=== PATIENT | female | born 1990 | race American Indian/Alaskan Native ===

== ENCOUNTER 2017-09-28 21:13 | Emergency (ER) | payer MEDICAID ==
[2017-09-28 21:29] VITALS: BMI 21.6
[2017-09-28 21:32] VITALS: BP 136/55; PULSE 77; RESP 18; TEMP 99.3; O2SAT 100
--- NOTE | 2017-09-28 21:59 | ED PDOC ---
Arrival/HPI - General Historian: Patient - History of Present Illness Time/Duration: Prior to Arrival Symptom Onset: Other Symptom Course: Other Activities at Onset: Other Context: Other <Raffaele Hooper - Last Filed: 09/28/17 23:43> <Marques Gold - Last Filed: 09/28/17 23:56> - General Chief Complaint: Female Genitourinary Time Seen by Provider: 09/28/17 21:26 - History of Present Illness Narrative History of Present Illness (Text): Patient is a 26 year old female with PMHx of Asthma who presented to the ED with concerns of her . Patient stated she discovered she was due to a positive urine test on 09/25/17. Patient made appointment with [facility] for October 28 2017. The patient was told she would need pre- vitamins earlier than her appointment date so she went for an evaluation at [facility] where they did a transvaginal ultrasound that showed no intrauterine . Currently she has no physical complaints. Patient would like a confirmation of whether she is or not. FDLMP was 08/09/2017. ROS POSITIVES: Hx of Nausea (Currently not nauseous), low appetite NEGATIVES: Fever, chills, headache, chest pain, sob, abdominal tenderness, changes in bowel habits, urinary symptoms, vaginal bleeding. PMHx: Asthma PSHx: None Allergies: Pineapples Social Hx: 1-2 cigarettes daily for about 3 years, Drinks Alcohol occasionally, Daily marijuana use. Fam Hx: Denies Meds: Ventolin 09/28/17 21:53 09/28/17 22:08 09/28/17 22:14 09/28/17 22:35 09/28/17 22:41 (Raffaele Hooper) Past Medical History - Provider Review Nursing Documentation Reviewed: Yes - Infectious Disease Hx of Infectious Diseases: None - Tetanus Immunization Tetanus Immunization: Unknown - Past Medical History Past Medical History: No Previous - Cardiac Hx Cardiac Disorders: No - Pulmonary Hx Respiratory Disorders: No - Neurological Hx Neurological Disorder: No - HEENT Hx HEENT Disorder: No Hx Blind: No - Renal Hx Renal Disorder: No - Endocrine/Metabolic Hx Endocrine Disorders: No - Hematological/Oncological Hx Blood Disorders: No - Integumentary Hx Dermatological Disorder: No - Musculoskeletal/Rheumatological Hx Musculoskeletal Disorders: No - Gastrointestinal Hx Gastrointestinal Disorders: No - Genitourinary/Gynecological Hx Genitourinary Disorders: No - Psychiatric Hx Psychophysiologic Disorder: Yes Hx Depression: Yes (history of suicidal ideation) Hx Emotional Abuse: No Hx Physical Abuse: No Hx Substance Use: Yes (Marijuana) - Past Surgical History Past Surgical History: No Previous - Suicidal Assessment Feels Threatened In Home Enviroment: No <Raffaele Hooper - Last Filed: 09/28/17 23:43> Family/Social History - Physician Review Nursing Documentation Reviewed: Yes Family/Social History: No Known Family HX Smoking Status: Heavy Smoker > 10 Cigarettes Daily Hx Alcohol Use: Yes Hx Substance Use: Yes (Marijuana) Hx Substance Use Treatment: No <Raffaele Hooper - Last Filed: 09/28/17 23:43> Allergies/Home Meds <Raffaele Hooper - Last Filed: 09/28/17 23:43> <Marques Gold - Last Filed: 09/28/17 23:56> Allergies/Adverse Reactions: Allergies pineapple Allergy (Verified 09/28/17 21:29) ANAPHYLAXIS Home Medications: Home Meds Medication Instructions Recorded Confirmed No Known Home Med 09/28/17 09/28/17 Review of Systems - Physician Review All systems were reviewed & negative as marked: Yes - Review of Systems Constitutional: Normal Eyes: Normal ENT: Normal Respiratory: Normal Cardiovascular: Normal Gastrointestinal: Normal Genitourinary Female: Normal Neurological: Normal <Annalisa Hoopermayi - Last Filed: 09/28/17 23:43> Physical Exam - Systems Exam Head: Present: Atraumatic, Normocephalic Pupils: Present: PERRL Extroacular Muscles: Present: EOMI Conjunctiva: Present: Normal Mouth: Present: Moist Mucous Membranes Pharnyx: Present: Normal Respiratory/Chest: Present: Clear to Auscultation. No: Accessory Muscle Use Cardiovascular: Present: Regular Rate and Rhythm, Normal S1, S2. No: Murmurs Abdomen: Present: Normal Bowel Sounds. No: Tenderness, Distention Back: No: CVA Tenderness Skin: Present: Normal Color Psychiatric: Present: Alert, Oriented x 3 <Raffaele Hooper - Last Filed: 09/28/17 23:43> Vital Signs Temp Pulse Resp BP Pulse Ox 09/28/17 21:31 99.3 F 77 18 136/55 L 100 Medical Decision Making <Raffaele Hooper - Last Filed: 09/28/17 23:43> - Lab Interpretations I have reviewed the lab results: Yes - RAD Interpretation Glue Drier Operator: Radiologist <Marques Gold - Last Filed: 09/28/17 23:56> ED Course and Treatment: Questionable -CBC/CMP -Urine Beta HCG (Qualitative) - POSITIVE -Quantitative Beta HCG - 86,884 -Transvaginal US: Single Live Intrauterine . Gestational Age of 7 weeks 1 day. -UA - Trace Intact Blood -Type and Screen 09/28/17 23:10 09/28/17 23:30 (Raffaele Hooper) Impression: Pt seen and evaluated with medical office assistant instructor. Pt, whose past medical history includes asthma, presented for further evaluation. Pt had positive test at home and went to [facility] [place] for a transvaginal US which showed no intrauterine . Pt became concerned and came to the ER for further evaluation. Patient denies any complaints. Aware and agree with HPI, clinical findings, plan, and management. Plan: -- Transvaginal US -- Labs, blood type and screen, Beta-HCG -- UA -- Reassess and disposition 09/28/17 22:55 Reviewed sono, Transvaginal US shows: Gestation: Single live intrauterine gestation. heart rate of 148 beats per minute. [place]-rump length of 1.06 cm, correlating with gestational age of 7 weeks 1 day. Uterus/cervix: Retroverted uterus. No subchorionic hemorrhage. No cervical dilatation or effacement. Ovaries: Normal ovaries. No adnexal masses. Free fluid: No significant free fluid. IMPRESSION: 1. Single live intrauterine gestation. 2. Incidental/non-acute findings are described above. (Marques Gold) - Lab Interpretations Lab Results: 09/28/17 22:00 09/28/17 22:00 Lab Results 09/28/17 22:15: Blood Type B POSITIVE, Antibody Screen Negative, BBK History Checked No verified bt 09/28/17 22:00: Beta HCG, Quant 36448.00 H 09/28/17 22:00: Sodium 137, Potassium 4.2, Chloride 103, Carbon Dioxide 23, Anion Gap 15, BUN 6 L, Creatinine 0.7, Est GFR ( Amer) > 60, Est GFR (Non -Af Amer) > 60, Random Glucose 88, Calcium 10.1, Total Bilirubin 0.8, AST 24, ALT 31, Alkaline Phosphatase 52, Total Protein 8.5 H, Albumin 4.8, Globulin 3.7 , Albumin/Globulin Ratio 1.3 09/28/17 22:00: Urine Color Yellow, Urine Appearance Clear, Urine pH 6.0, Ur Specific [place] 1.025, Urine Protein Negative, Urine Glucose (UA) Negative, Urine Ketones >=80, Urine Blood Trace-intact H, Urine Nitrate Negative, Urine Bilirubin Negative, Urine Urobilinogen 0.2, Ur Leukocyte Esterase Negative, Urine RBC 2 - 5, Urine WBC 0 - 2, Ur Epithelial Cells 4 - 5, Urine Bacteria Small, Urine HCG, Qual Positive 09/28/17 22:00: WBC 14.0 H, RBC 4.55, Hgb 13.4, Hct 39.2, MCV 86.2, MCH 29.5, MCHC 34.2, RDW 13.3, Plt Count 293, MPV 9.0, Gran % 64.5, Lymph % (Auto) 24.2, [place] % (Auto) 9.1 H, Eos % (Auto) 1.6, Baso % (Auto) 0.6, Gran # 9.00 H, Lymph # 3.4, [place] # 1.3 H, Eos # 0.2, Baso # 0.08 - RAD Interpretation Radiology Orders: 09/28/17 21:50 OB TRANSVAGINAL [US] Stat - PA / DROPHAMMER OPERATOR / Resident Statement NEHEMIAH has reviewed & agrees with the documentation as recorded. NEHEMIAH has examined the patient and agrees with the treatment plan. <Marques Gold - Last Filed: 09/28/17 23:56> Disposition/Present on Arrival - Present on Arrival Any Indicators Present on Arrival: No History of DVT/PE: No History of Uncontrolled Diabetes: No Urinary Catheter: No History of Decub. Ulcer: No History Surgical Site Infection Following: None - Disposition Have Diagnosis and Disposition been Completed?: Yes Disposition Time: 23:45 <Raffaele Hooper - Last Filed: 09/28/17 23:43> <Marques Gold - Last Filed: 09/28/17 23:56> - Disposition Diagnosis: Disposition: HOME/ ROUTINE Patient Problems: Current Active Problems Problem Status Onset Acute Condition: STABLE Discharge Instructions (ExitCare): Morning Sickness (ED), (ED), Hyperemesis Gravidarum (ED) Additional Instructions: Please Follow up with your primary medical physician Please follow up with [facility]. Referrals: Nirali Jauregui MD [Primary Care Provider] - Follow up with primary Forms: [employer] (Icelandic)
[2017-09-28 22:10] LABS: URINE BILIRUBIN NEGATIVE (NEGATIVE); URINE BLOOD TRACE-INTACT (NEGATIVE); URINE GLUCOSE (UA) NEGATIVE (NEGATIVE); URINE KETONE >=80 mg/dL (NEGATIVE); URINE LEUKOCYTE ESTERASE NEGATIVE Leu/uL (NEGATIVE); URINE PROTEIN NEGATIVE mg/dL (<30 mg/dL); URINE UROBILINOGEN 0.2 E.U./dL (<1 E.U./dL)
[2017-09-28 22:11] LABS: BASO # 0.08 K/mm3 (0.0-2.0); BASO % 0.6 % (0.0-3.0); EOS # 0.2 (0.0-0.7); EOS % 1.6 % (1.5-5.0); GRAN % 64.5 % (50.0-68.0); HEMATOCRIT 39.2 % (36.0-48.0); LYMPH # 3.4 (1.2-3.4); LYMPH % 24.2 % (22.0-35.0); MEAN CELL VOLUME 86.2 fl (80.0-105.0); MEAN CORPUSCULAR HEMOGLOBIN 29.5 pg (25.0-35.0); MEAN CORPUSCULAR HGB CONC 34.2 g/dl (31.0-37.0); MONO # 1.3 (0.1-0.6); MONO % 9.1 % (1.0-6.0); RED CELL DISTRIBUTION WIDTH 13.3 % (11.5-14.5)
[2017-09-28 22:15] LABS: URINE APPEARANCE CLEAR (CLEAR); URINE COLOR YELLOW (YELLOW)
[2017-09-28 22:29] LABS: ALB/GLOB RATIO 1.3 (1.1-1.8); ALKALINE PHOSPHATASE 52 U/L (38-126); ALT/SGPT 31 U/L (7-56); AST/SGOT 24 U/L (14-36); BILIRUBIN,TOTAL 0.8 mg/dL (0.2-1.3); BLOOD UREA NITROGEN 6 mg/dL (7-21); CALCIUM 10.1 mg/dL (8.4-10.5); CARBON DIOXIDE 23 mmol/L (21-33); CHLORIDE 103 mmol/L (98-107); GFR AFRICAN-AMERICAN > 60; GLUCOSE,RANDOM 88 mg/dL (70-110); POTASSIUM 4.2 mmol/L (3.6-5.0); SODIUM 137 mmol/L (132-148); TOTAL PROTEIN 8.5 g/dL (5.8-8.3)
[2017-09-28 22:37] LABS: URINE WBC 0 - 2 /hpf (0-6)
[2017-09-28 22:38] LABS: URINE BACTERIA SMALL (NEG)
--- NOTE | 2017-09-28 22:55 | US ---
EXAM: US First Trimester, Transabdominal CLINICAL HISTORY: 26 years old, female; Signs and symptoms; Lmp or gestational age (in weeks): 08/09/17; Other: Viability; ; Additional info: Check for viable intruterine . TECHNIQUE: Real-time transabdominal obstetrical ultrasound of the maternal pelvis and a first trimester with image documentation. COMPARISON: No relevant prior studies available. FINDINGS: Gestation: Single live intrauterine gestation. heart rate of 148 beats per minute. [place]-rump length of 1.06 cm, correlating with gestational age of 7 weeks 1 day. Uterus/cervix: Retroverted uterus. No subchorionic hemorrhage. No cervical dilatation or effacement. Ovaries: Normal ovaries. No adnexal masses. Free fluid: No significant free fluid. IMPRESSION: 1. Single live intrauterine gestation. 2. Incidental/non-acute findings are described above. EXAM: US , Transvaginal CLINICAL HISTORY: 26 years old, female; Signs and symptoms; Lmp or gestational age (in weeks): 08/09/17; Other: Viability; ; Additional info: Check for viable intruterine . TECHNIQUE: Real-time transvaginal obstetrical ultrasound of the maternal pelvis and a first trimester with image documentation. Transvaginal imaging was used for better evaluation of the fetus and adnexa. COMPARISON: No relevant prior studies available. FINDINGS: Gestation: Single live intrauterine gestation. heart rate of 148 beats per minute. [place]-rump length of 1.06 cm, correlating with gestational age of 7 weeks 1 day. Uterus/cervix: Retroverted uterus. No subchorionic hemorrhage. No cervical dilatation or effacement. Ovaries: Normal ovaries. No adnexal masses. Free fluid: No significant free fluid.
== END 2017-09-28 21:57 | disposition home or self-care (01) ==
LOC: ED 21:13
DX: O26.891 Other specified pregnancy related conditions, first trimester (principal); Z3A.01 Less than 8 weeks gestation of pregnancy